=== PATIENT | female | born 1995 ===

== ENCOUNTER 2016-09-21 18:03 | Emergency (ER) | payer OTHER ==
[2016-09-21 18:09] VITALS: TEMP 98.9; O2SAT 100
[2016-09-21] MEDS ORDERED: Sodium Chloride 0.9% 1,000 ML IV ONE (18:30)
[2016-09-21] MEDS ORDERED: Sodium Chloride 0.9% 0 ML ONE (18:40)
[2016-09-21] MEDS ORDERED: Sodium Chloride 0.9% 1,000 ML ONE (18:46)
[2016-09-21 19:02] LABS: BASO % 0.7 % (0.0-2.0); EOS % 0.8 % (0.0-4.0); HEMATOCRIT 37.7 % (34.0-47.0); LYMPH % 36.5 % (20.0-40.0); MEAN CORPUSCULAR HEMOGLOBIN 29.7 pg (27.0-31.0); MEAN CORPUSCULAR HGB CONC 34.5 g/dL (33.0-37.0); MEAN PLATELET VOLUME 10.1 fL (7.2-11.7); MONO # 0.5 K/uL (0.0-0.8); MONO % 8.8 % (0.0-10.0); NRBC % 0.1 % (0.0-2.0); RED CELL DISTRIBUTION WIDTH 13.5 % (11.5-14.5); WHITE BLOOD COUNT 5.5 K/uL (4.8-10.8)
[2016-09-21 19:10] LABS: CHLORIDE 103 mmol/L (98-107); POTASSIUM 3.6 mmol/L (3.6-5.2); SODIUM 135 mmol/L (132-148)
[2016-09-21 19:12] LABS: GFR AFRICAN-AMERICAN > 60
[2016-09-21 19:13] LABS: ALB/GLOB RATIO 1.4 (1.0-2.1); ALKALINE PHOSPHATASE 55 U/L (38-126); ALT/SGPT 26 U/L (9-52); AST/SGOT 16 U/L (14-36); BILIRUBIN,TOTAL 0.4 mg/dL (0.2-1.3); BLOOD UREA NITROGEN 9 mg/dL (7-17); CARBON DIOXIDE 20 mmol/L (22-30); GLUCOSE,RANDOM 78 mg/dL (65-105); TOTAL PROTEIN 6.7 g/dL (6.3-8.3)
[2016-09-21 20:32] LABS: RBC URINE 5 /hpf (0-3); TRANSITIONAL EPITHIAL < 1 /hpf (0-3); URINE BACTERIA RARE (<OCC); URINE BILIRUBIN NEGATIVE (NEGATIVE); URINE BLOOD 1+ (NEGATIVE); URINE COLOR Straw (YELLOW); URINE GLUCOSE (UA) NORMAL (Normal); URINE KETONE NEGATIVE (NEGATIVE); URINE LEUKOCYTE ESTERASE NEG Leu/uL (Negative); URINE PROTEIN NEGATIVE (NEGATIVE); URINE UROBILINOGEN NORMAL mg/dL (0.2-1.0); WBC URINE 1 /hpf (0-5)
--- NOTE | 2016-09-21 21:34 | C.PDOC ---
History Of Present Illness 20 y/o female presents to the ED for evaluation of vaginal bleeding which began yesterday. Patient note she found small clots in her blood. She also reports mild nausea. Otherwise, she denies fever, chills, cough, changes in appetite, vomiting, hematuria, dysuria. Patient is ; LMP was 07/26. Time Seen by Provider: 09/21/16 18:29 Chief Complaint (Nursing): Female Genitourinary History Per: Patient History/Exam Limitations: no limitations Onset/Duration Of Symptoms: Days Current Symptoms Are (Timing): Still Present Associated Symptoms: Nausea (mild). denies: Fever, Chills, Vomiting, Urinary Symptoms Additional History Per: Patient Abnormal Vaginal Bleeding: Yes Last Menstral Period: 07/26 : 2 Para: 1 Past Medical History Reviewed: Historical Data, Nursing Documentation, Vital Signs Vital Signs: Last Vital Signs Temp 98.9 F 09/21/16 18:07 Pulse 90 09/21/16 21:30 Resp 20 09/21/16 21:30 BP 106/78 09/21/16 21:30 Pulse Ox 100 09/21/16 23:41 - Medical History PMH: No Chronic Diseases Surgical History: No Surg Hx Family History: States: Unknown Family Hx - Social History Hx Alcohol Use: No Hx Substance Use: No Review Of Systems Constitutional: Negative for: Fever, Chills Respiratory: Negative for: Cough Gastrointestinal: Negative for: Nausea, Vomiting Genitourinary: Positive for: Vaginal Bleeding. Negative for: Dysuria, Hematuria Physical Exam - Physical Exam Appears: Non-toxic, No Acute Distress Skin: Normal Color, Warm, Dry Head: Atraumatic, Normacephalic Eye(s): bilateral: Normal Inspection Oral Mucosa: Moist Neck: Supple Chest: Symmetrical, No Deformity, No Tenderness Cardiovascular: Rhythm Regular, No Murmur Respiratory: Normal Breath Sounds, No Rales, No Rhonchi, No Wheezing Gastrointestinal/Abdominal: Soft, No Tenderness, No Guarding, No Rebound Back: Normal Inspection, No Vertebral Tenderness, No Paraspinal Tenderness Extremity: Normal ROM, Capillary Refill (less than 2 seconds ) Neurological/Psych: Oriented x3, Normal Speech, Normal Cognition Gait: Steady ED Course And Treatment - Laboratory Results Result Diagrams: 09/21/16 18:58 09/21/16 18:58 O2 Sat by Pulse Oximetry: 100 (room air ) - CT Scan/US US , Transvaginal Other Rad Studies (CT/US): Read By Radiologist, Radiology Report Reviewed CT/US Interpretation: CLINICAL HISTORY: 20 years old, female; Signs and symptoms; Lmp or gestational age (in weeks): [id number]; Other: Vaginal bleeding ; . TECHNIQUE: Real-time transvaginal obstetrical ultrasound of the maternal pelvis and a first trimester . with image documentation. Transvaginal imaging was used for better evaluation of the fetus and. adnexa. COMPARISON: No relevant prior studies available. FINDINGS: Gestation: Intrauterine , 7 weeks 2 days gestation. No heart tones. Placenta/amniotic fluid: Small subchorionic bleed. Uterus/cervix: Cervix is closed a 3.6 cm. No myometrial mass. Ovaries: The right ovary measures 3.9 cm. Left ovary measures 2.8 cm. No mass. Free fluid: No free fluid. IMPRESSION: Findings concerning for presence of demise. Yolk sac is also enlarged. Small subchorionic bleed is present. Small free fluid in the pelvis. US First Trimester, Transabdominal Other Rad Studies (CT/US): Read By Radiologist, Radiology Report Reviewed CT/US Interpretation: CLINICAL HISTORY: 20 years old, female; Signs and symptoms; Lmp or gestational age (in weeks): [id number]; Other: Vaginal bleeding ; . TECHNIQUE: Real-time transabdominal obstetrical ultrasound of the maternal pelvis and first trimester . with image documentation. COMPARISON: No relevant prior studies available. FINDINGS: Gestation: Intrauterine is present. Gestational sac is 2.8 cm, 7 weeks 4 days gestation. No embryo is 0.95 cm, 7 weeks gestation. No heart tones are detected. Small subchorionic. bleed incidentally seen, measuring 0.6 x 0.8 x 0.9 cm. The yolk sac is 7.7 mm. MATERNAL: Uterus: The uterus measures 9.4 x 5.7 x 7.3 cm. No myometrial mass. Cervix: Unremarkable as visualized. Closed. Free fluid: Small free fluid is present. IMPRESSION: demise. Small free fluid. Small subchorionic bleed. No adnexal lesions Progress Note: Labs and ultrasound. Patient received IV Fluids. Ultrasound shows evidence of demise. On reassessment, patient is resting comfortably , showing no signs of distress, and is stable for discharge. Patient states she is scheduled for an appointment with her JUNIOR PROGRAMMER ANALYST in three days. She is advised to keep this appointment and/or return to the ED if symptoms worsen. Disposition - Disposition Referrals: Adelia Crook, [Non-Staff] - Disposition: HOME/ ROUTINE Disposition Time: 20:30 Condition: GOOD Additional Instructions: Thank you for letting us take care of you today. Your provider was Dr. Chávez. You were treated for demise. The emergency medical care you received today was directed at your acute symptoms. If you were prescribed any medication, please fill it and take as directed. It may take several days for your symptoms to resolve. Return to the Emergency Department if your symptoms worsen, do not improve, or if you have any other problems. Please contact your doctor or call one of the physicians/clinics you have been referred to that are listed on the Patient Visit Information form that is included in your discharge packet. Bring any paperwork you were given at discharge with you along with any medications you are taking to your follow up visit. Our treatment cannot replace ongoing medical care by a primary care provider (PCP) outside of the emergency department. Thank you for allowing the [facility] team to be part of your care today. Follow up with your OB doctor in 2 days for re-evaluation and further management. Instructions: Threatened Miscarriage (ED) Forms: Gen Discharge Inst Norwegian, [employer] (Norwegian) Print Language: BENGALI - Clinical Impression Clinical Impression: demise - Scribe Statement The provider has reviewed the documentation as recorded by the Scribgurdeep Branham All medical record entries made by the Alannaibgurdeep were at my direction and personally dictated by me. I have reviewed the chart and agree that the record accurately reflects my personal performance of the history, physical exam, medical decision making, and the department course for this patient. I have also personally directed, reviewed, and agree with the discharge instructions and disposition.
[2016-09-21 22:17] VITALS: BP 106/78; PULSE 90; RESP 20
--- NOTE | 2016-09-22 10:42 | US ---
PROCEDURE: OB Pelvic Ultrasound HISTORY: vaginal bleeding COMPARISON: None available. FINDINGS: UTERUS: Gestational sac: Single intrauterine gestation. Heart rate: 0 bpm. age (Ultrasound estimated): 7 weeks 2 days +/- 0 weeks 4 days Genet-gestational hemorrhage: Suspicious for subchorionic bleed measures 0.6 x 0.8 x 0.9 centimeter. Date of delivery (Ultrasound estimated) : 05/08/2017 Uterus measures 9.4 x 5.7 x 7.2 cm. Normal in size and appearance. CERVIX: Long and closed. No cervical abnormality seen. RIGHT OVARY: Measures 3.9 x 2 x 3.6 cm. No mass lesion. Normal flow. LEFT OVARY: Measures 2.8 x 1.6 x 1.8 cm. No solid mass. Normal flow. FREE FLUID: None. OTHER FINDINGS: None. IMPRESSION: Intrauterine gestational sac. The CRL measures 0.98 centimeter corresponding to gestational age of 7 weeks. No heart activity appreciated in this exam. The possibility of demise should be considered. Correlation with beta HCG level is suggested. Suspicious for small subchorionic bleed. Preliminary report was submitted by virtual Radiology
== END 2016-09-21 21:30 | disposition home or self-care (01) ==
LOC: C.ER 18:03
DX: O02.1 Missed abortion (principal)

== ENCOUNTER 2016-10-19 07:47 | Emergency (ER) | payer OTHER ==
[2016-10-19 07:49] VITALS: O2SAT 100; BMI 25.4
[2016-10-19] MEDS ORDERED: Sodium Chloride 0.9% 1,000 ML IV ONE (07:54)
--- NOTE | 2016-10-19 08:10 | C.PDOC ---
History Of Present Illness Patient is a 21 year old female, , approximately 12 weeks gestational age, presents to ED for evaluation of intermittent vaginal bleeding for the past month. Pt states that bleeding became worse 1 hour prior to arrival. Pt complains of lower abdominal pain, and reports feeling "weak". Otherwise, denies any shortness of breath, chest pain, lightheadedness, dizziness, nausea, vomiting, fever, chills, or any other associated symptoms at this time. Time Seen by Provider: 10/19/16 08:07 Chief Complaint (Nursing): Female Genitourinary History Per: Patient History/Exam Limitations: no limitations Onset/Duration Of Symptoms: Days (1 month), Intermittent Episodes Current Symptoms Are (Timing): Still Present Location Of Pain/Discomfort: Suprapubic Radiation Of Pain To:: None Quality Of Discomfort: "Pain" Associated Symptoms: denies: Loss Of Appetite, Back Pain, Chest Pain, Constipation, Urinary Symptoms Exacerbating Factors: None Alleviating Factors: None Recent travel outside of the [place]: No Additional History Per: Patient Abnormal Vaginal Bleeding: Yes : 2 Para: 1 Past Medical History Reviewed: Historical Data, Nursing Documentation, Vital Signs Vital Signs: Last Vital Signs Temp 98.1 F 10/19/16 10:25 Pulse 68 10/19/16 10:25 Resp 16 10/19/16 10:25 BP 99/61 L 10/19/16 10:25 Pulse Ox 100 10/19/16 10:25 - Medical History PMH: No Chronic Diseases Family History: States: Unknown Family Hx - Social History Hx Alcohol Use: No Hx Substance Use: No - Immunization History Hx Tetanus Toxoid Vaccination: No Hx Influenza Vaccination: No Hx Pneumococcal Vaccination: No Review Of Systems Except As Marked, All Systems Reviewed And Found Negative. Constitutional: Positive for: Weakness. Negative for: Fever, Chills Cardiovascular: Negative for: Chest Pain, Light Headedness Respiratory: Negative for: Shortness of Breath Gastrointestinal: Positive for: Abdominal Pain (lower). Negative for: Nausea, Vomiting, Diarrhea, Constipation Genitourinary: Positive for: Vaginal Bleeding. Negative for: Dysuria, Frequency Musculoskeletal: Negative for: Back Pain Neurological: Negative for: Dizziness Physical Exam - Physical Exam Appears: Non-toxic, No Acute Distress Skin: Normal Color, Warm, Dry Head: Atraumatic, Normacephalic Eye(s): bilateral: Normal Inspection Oral Mucosa: Moist Neck: Normal ROM, Supple Chest: Symmetrical Cardiovascular: Rhythm Regular Respiratory: No Accessory Muscle Use Gastrointestinal/Abdominal: Soft, No Tenderness Pelvic: Vaginal Bleeding (bright red blood), Other (Unable to visualize cervix due to blood pooling in the vaginal vault) Extremity: Normal ROM Neurological/Psych: Oriented x3, Normal Speech ED Course And Treatment - Laboratory Results Result Diagrams: 10/19/16 08:20 10/19/16 08:20 O2 Sat by Pulse Oximetry: 100 (on RA) Pulse Ox Interpretation: Normal Progress Note: Blood work ordered and reviewed. Pt was given IV fluids, Zofran, and Morphine. Medical Decision Making Medical Decision Makin:20 Spoke with retail commission sales associate OBGYN, Dr. Barros, who will evaluate patient at bedside immediately. 8:30 Dr Barros came down to the ED and removed POC from cervix which stopped the bleeding. rec ptocin drip for 1 hour then dc home on methergine 0.2mg q6h x4 doses, doxy 100mg bid x 7 days, flagyl 500mg bid x7 days. Disposition - Disposition Referrals: Derek Barros [Staff Provider] - Disposition: HOME/ ROUTINE Disposition Time: 11:31 Condition: STABLE Additional Instructions: Please follow up with the OBGYN doctor in the next week. Take medication as directed. Return to the ER for any worsening symptoms or for any other concerns. Prescriptions: Doxycycline Hyclate [Doryx] 100 mg PO BID #14 cap Methylergonovine Maleate [Methergine] 0.2 mg PO Q6H #4 tablet Metronidazole [Flagyl] 500 mg PO BID #14 tablet Instructions: Spontaneous Miscarriage (ED) Forms: Gen Discharge Inst Armenian, [facility] (Swedish) Print Language: MALTESE - Clinical Impression Clinical Impression: Spontaneous - Scribe Statement The provider has reviewed the documentation as recorded by the Scribe Andres Branham All medical record entries made by the Alannaibe were at my direction and personally dictated by me. I have reviewed the chart and agree that the record accurately reflects my personal performance of the history, physical exam, medical decision making, and the department course for this patient. I have also personally directed, reviewed, and agree with the discharge instructions and disposition.
[2016-10-19 08:23] LABS: BASO % 0.6 % (0.0-2.0); EOS % 0.6 % (0.0-4.0); HEMATOCRIT 39.7 % (34.0-47.0); LYMPH # 1.5 K/uL (1.0-4.3); LYMPH % 25.3 % (20.0-40.0); MEAN CELL VOLUME 87.3 fL (81.0-99.0); MEAN CORPUSCULAR HGB CONC 34.3 g/dL (33.0-37.0); MEAN PLATELET VOLUME 9.9 fL (7.2-11.7); MONO # 0.3 K/uL (0.0-0.8); MONO % 5.9 % (0.0-10.0); RED CELL DISTRIBUTION WIDTH 14.3 % (11.5-14.5); WHITE BLOOD COUNT 5.8 K/uL (4.8-10.8)
[2016-10-19 08:33] LABS: CHLORIDE 105 mmol/L (98-107)
[2016-10-19 08:34] LABS: POTASSIUM 4.3 mmol/L (3.6-5.2); SODIUM 141 mmol/L (132-148)
[2016-10-19 08:35] LABS: INR 1.1
[2016-10-19 08:36] LABS: AST/SGOT 18 U/L (14-36); BILIRUBIN,TOTAL 0.6 mg/dL (0.2-1.3); CARBON DIOXIDE 24 mmol/L (22-30); GFR AFRICAN-AMERICAN > 60
[2016-10-19 08:37] LABS: ALB/GLOB RATIO 1.6 (1.0-2.1); ALKALINE PHOSPHATASE 56 U/L (38-126); ALT/SGPT 23 U/L (9-52); BLOOD UREA NITROGEN 5 mg/dL (7-17); GLUCOSE,RANDOM 84 mg/dL (65-105); TOTAL PROTEIN 7.3 g/dL (6.3-8.3)
--- NOTE | 2016-10-19 09:00 | CP.PCM.CON ---
History of Present Illness - History of Present Illness History of Present Illness: 21 year old at 12w1d by LMP with [facility] 05/02/17 presents to the ED for worsening vaginal bleeding. Reports that she has been bleeding intermittently for the past month but bleeding has gotten worse 1 hour prior to arrival. Patient was previously seen in the ED for vaginal bleeding one month ago. TVUS performed on 09/21 showed gestational age of 8 weeks with no heart activity. Patient denies any fevers/chills, headaches, dizziness, cp palpitations, sob, urinary symptoms. OB Hx: 2016 at term, no complications [employer]P TE[employer]ER Hx: LMP 07/26/16 [place]: days Denies hx of abnormal pap smear Denies hx of fibroids, ovarian cysts Denies hx of STDs Allergies: NKDA Medications: denies Medical History: denies Surgical History: denies Social History: denies alcohol, tobacco, drug use Family History: non-contributory Review of Systems - Constitutional Constitutional: As Per HPI. absent: Chills, Fatigue, Headache - EENT Eyes: absent: Blurred Vision, Change in Vision Ears: absent: Decreased Hearing - Cardiovascular Cardiovascular: absent: Chest Pain, Dyspnea, Palpitations - Respiratory Respiratory: absent: Cough, Dyspnea - Gastrointestinal Gastrointestinal: absent: Abdominal Pain, Constipation, Diarrhea, Nausea, Vomiting - Genitourinary Genitourinary: absent: Dysuria, Urinary Frequency - Reproductive: Female Reproductive:Female: Abnormal Vaginal Bleeding - Neurological Neurological: absent: Dizziness, Numbness, Headaches, Weakness - Psychiatric Psychiatric: absent: Anxiety, Depression Past Patient History - Past Social History Smoking Status: Never Smoked - PSYCHIATRIC Hx Substance Use: No - SURGICAL HISTORY Hx Surgeries: No - ANESTHESIA Hx Anesthesia: No Meds Allergies/Adverse Reactions: Allergies Allergy/AdvReac Type Severity Reaction Status Date / Time No Known Allergies Allergy Verified 10/19/16 08:02 - Medications Medications: Current Medications Oxytocin (Pitocin 20 Units In Lr) 1,000 mls @ 500 mls/hr IV .Q2H RICK PRN Reason: Protocol Physical Exam - Constitutional Appears: Well, No Acute Distress - Head Exam Head Exam: ATRAUMATIC, NORMAL INSPECTION - Eye Exam Eye Exam: EOMI, Normal appearance - ENT Exam ENT Exam: Mucous Membranes Moist - Respiratory Exam Respiratory Exam: Clear to Auscultation Bilateral. absent: Rales, Rhonchi, Wheezes - Cardiovascular Exam Cardiovascular Exam: REGULAR RHYTHM, +S1, +S2 - GI/Abdominal Exam GI & Abdominal Exam: Normal Bowel Sounds, Soft. absent: Rebound, Rigid, Tenderness - Exam Bimanual exam: absent: Adenexal Mass, Cervical Motion Tendernes Additional comments: Uterus approximately 6 week size Cervix visualized, open Approximately 150cc of blood and products of conception removed Currently no active bleeding noted - Extremities Exam Extremities exam: Positive for: normal capillary refill, normal inspection - Back Exam Back exam: NORMAL INSPECTION - Neurological Exam Neurological exam: Alert, Normal Gait, Oriented x3 - Psychiatric Exam Psychiatric exam: Normal Affect, Normal Mood - Skin Skin Exam: Dry, Normal Color, Warm Results - Vital Signs Recent Vital Signs: Last Vital Signs Temp 98.2 F 10/19/16 07:49 Pulse 103 H 10/19/16 07:49 Resp 18 10/19/16 07:49 BP 118/87 10/19/16 07:49 Pulse Ox 100 10/19/16 08:52 - Labs Result Diagrams: 10/19/16 08:20 10/19/16 08:20 Labs: Laboratory Results - last 24 hr 10/19/16 10/19/16 10/19/16 08:20 08:20 08:20 WBC 5.8 RBC 4.55 Hgb 13.6 Hct 39.7 MCV 87.3 MCH 30.0 MCHC 34.3 RDW 14.3 Plt Count 164 MPV 9.9 Neut % (Auto) 67.6 Lymph % (Auto) 25.3 [place] % (Auto) 5.9 Eos % (Auto) 0.6 Baso % (Auto) 0.6 Neut # 3.9 Lymph # 1.5 [place] # 0.3 Eos # 0.0 Baso # 0.0 PT 12.3 H INR 1.1 APTT 30 Sodium 141 Potassium 4.3 Chloride 105 Carbon Dioxide 24 Anion Gap 17 BUN 5 L Creatinine 0.6 L Est GFR ( Amer) > 60 Est GFR (Non-Af Amer) > 60 Random Glucose 84 Calcium 9.0 Total Bilirubin 0.6 AST 18 ALT 23 Alkaline Phosphatase 56 Total Protein 7.3 Albumin 4.4 Globulin 2.9 Albumin/Globulin Ratio 1.6 Blood Type 10/19/16 08:20 WBC RBC Hgb Hct MCV MCH MCHC RDW Plt Count MPV Neut % (Auto) Lymph % (Auto) [place] % (Auto) Eos % (Auto) Baso % (Auto) Neut # Lymph # [place] # Eos # Baso # PT INR APTT Sodium Potassium Chloride Carbon Dioxide Anion Gap BUN Creatinine Est GFR ( Amer) Est GFR (Non-Af Amer) Random Glucose Calcium Total Bilirubin AST ALT Alkaline Phosphatase Total Protein Albumin Globulin Albumin/Globulin Ratio Blood Type B POSITIVE Assessment & Plan - Assessment and Plan (Free Text) Assessment: 21 year old at 12w1d presents with incomplete Plan: Incomplete , s/p removal of POC 1. Stable, afebrile 2. Hgb 13.6 3. Will start Pitocin 4. Rh positive, no rhogam needed at this time 5. Will prescribe Methergine 0.2mg Q6H x 4 doses, Flagyl 500mg BID x 7 days, Doxycycline 100mg BID x 7 days 6. Patient to follow up with [facility] in [place] within 1 week 7. Plan d/w attending Danii Bullock DO PGY-1
[2016-10-19 10:26] VITALS: BP 99/61; PULSE 68; RESP 16; TEMP 98.1
== END 2016-10-19 11:20 | disposition home or self-care (01) ==
LOC: C.ER 07:47
DX: O03.9 Complete or unspecified spontaneous abortion without complication (principal); Z3A.12 12 weeks gestation of pregnancy
CPT/HCPCS: 80053; 85025; 85610; 85730; 86850; 86900; 88305; 96361; 96365; 96375; 99285; J2270; J2405; J7040